=== PATIENT | male | born 1965 | race Two or more races ===

== ENCOUNTER 2019-09-23 06:28 | Day surgery (SDC) | payer BC ==
--- NOTE | 2019-09-13 14:12 | HP ---
HISTORY AND PHYSICAL: DATE OF SURGERY/ADMISSION: 09/23/19 DATE OF OFFICE VISIT: 09/12/19 SURGEON: Sarah Oakes MD * (DICTATED BY HEMA CORCORAN) PROCEDURES: Right knee arthroscopy with partial meniscectomy, possible chondroplasty, possible synovectomy, possible plica excision. CHIEF COMPLAINT: Right knee pain. HISTORY OF PRESENT ILLNESS: Mr. Fontana is a 54-year-old gentleman with complaints of right knee pain. An MRI confirms meniscus tear and he has elected to proceed with surgery. PAST MEDICAL HISTORY: History of alcohol abuse and hepatitis C, treated 5 years ago. PAST SURGICAL HISTORY: Left knee arthroscopy, colonoscopy. CURRENT MEDICATIONS: None. ALLERGIES: None. FAMILY HISTORY: Denied. SOCIAL HISTORY: He is a 54-year-old gentleman, lives with his girlfriend. He occasionally smokes. He says he smokes a couple of cigarettes per week. Denies use of drugs or alcohol. REVIEW OF SYSTEMS: A complete 14-point review of systems is reviewed with the patient, and it is positive for history of hepatitic C infection 5 years ago which was treated. He denies history of DVT, PE, MRSA or anesthesia problems. PHYSICAL EXAMINATION GENERAL: He is well developed, well nourished, in no acute distress. VITAL SIGNS: He stands 5 feet 9 inches tall, weighs 170 pounds. His blood pressure is 128/70, his heart rate is 76. HEENT: Normocephalic, atraumatic. NECK: Supple. No palpable lymph nodes. PULMONARY: The lungs are clear to auscultation bilaterally. CARDIO: Regular rate and rhythm. Strong S1 and S2. ABDOMEN: Soft, nontender, nondistended. NEUROLOGIC: He is alert and oriented x3. MUSCULOSKELETAL: Right lower extremity, skin is intact. There are no open wounds or abrasions. There is some mild to moderate effusion of the right knee. He has some tenderness along the medial joint line. Positive Apley's and Matt's. Negative Batsheva. He has a 2+ dorsalis pedis pulse. He is able to dorsiflex, plantarflex and has intact sensation. ASSESSMENT AND PLAN: Mr. Fontana is a 54-year-old gentleman with a 1 month history of acute right knee pain with mechanical symptoms and MRI confirms the medial meniscus tear. He has elected to proceed with the right knee arthroscopy with partial meniscectomy, possible chondroplasty, possible synovectomy and possible plica excision. Surgery is scheduled for 09/23/[address] Oakes discussed the risks and the benefits of the surgery at today's visit and all of his questions were answered. He will follow up with Dr. Oakes 2 weeks after the surgery. HEMA CORCORAN [id number]/[facility] #: [id number] MTDD
[~2019-09-23 06:28] MED LIST: Buffered Lidocaine 1% SYRIN* 1 ML/SYRINGE INTRADERM ONE; Famotidine IV* 10 MG/ML 2 ML (20 mg) IV ONE; Lactated Ringers 1000 ML Bag* 1,000 ML IV SCH
[2019-09-23] MEDS ORDERED: Famotidine IV* 10 MG/ML 2 ML (20 mg) ONE (06:43)
[2019-09-23] MEDS ORDERED: ceFAZolin 2 GM in NS PREMIX(*) 2 GM/100 ML BAG IVPB ONE (06:44)
[2019-09-23] MEDS ORDERED: methylPREDNISolone ACETATE 80* 80 MG/ML 1 ML VIAL ONE (08:09)
[2019-09-23] MEDS ORDERED: EPINEPHRINE 1 MG/ML 1 ML VIAL ONE (08:09)
[2019-09-23] MEDS ORDERED: ROPIVACAINE 5 MG/ML 30 ML BTL (0.5%) ONE (08:10)
[2019-09-23] MEDS ORDERED: Midazolam* 1 MG/ML 5 ML VIAL (5 MG) ONE (08:18)
[2019-09-23] MEDS ORDERED: fentaNYL* 50 MCG/ML 2 ML VIAL (100 MCG VIAL) ONE (08:38)
[2019-09-23] MEDS ORDERED: Ketorolac INJ* 30 MG/ML 1 ML VIAL ONE (08:52)
[2019-09-23] MEDS ORDERED: Propofol* 10 MG/ML 20 ML BTL ONE (08:52)
[2019-09-23] MEDS ORDERED: Dexamethasone IV* 4 MG/ML 1 ML (4 MG) ONE (08:52)
[2019-09-23] MEDS ORDERED: Ondansetron INJ* 2 MG/ML VIAL ONE (08:52)
[2019-09-23] MEDS ORDERED: Lidocaine 2% PF * 5 ML VIAL ONE (08:52)
[2019-09-23] MEDS ORDERED: Naloxone* 0.4 MG/ML 1 ML VIAL IV PRN (09:17)
[2019-09-23] MEDS ORDERED: oxyCODONE/Acetamin 5/325 MG* TAB PO PRN (09:17)
[2019-09-23] MEDS ORDERED: oxyCODONE/Acetamin 5/325 MG* TAB ONE (09:42)
[2019-09-23] MEDS ORDERED: HYDROmorphone INJ1* 1 MG/ML SYRINGE ONE (09:45)
[2019-09-23] MEDS ORDERED: HYDROmorphone INJ* 0.5 MG/0.5 ML SYRINGE IV SLOW PU PRN (09:45)
[2019-09-23 09:49] VITALS: BP 166/62
--- NOTE | 2019-09-24 00:27 | OP ---
OPERATIVE REPORT: DATE OF OPERATION: 09/23/19 DATE OF : 61 SURGEON: Sarah Oakes MD TURF GROWER: HEMA Mcmillan Ms. did help throughout the procedure with preparation of the leg, wound retraction, manipul ation of the knee, and wound closure. ANESTHESIOLOGIST: Dr. Richard. ANESTHESIA: General. PRE-OP DIAGNOSIS: Right knee medial meniscal tear with zmub-fw-ovysgibf degenerative osteoarthritis. POST-OP DIAGNOSIS: Right knee medial meniscal tear with wxgmprrv-cn-cwwbeu degenerative osteoarthrit is in the medial compartment. OPERATIVE PROCEDURE: Right knee arthroscopy with partial medial meniscectomy and medial compartment chondroplasty. INDICATIONS: Mr. Fontana is a 54-year-old gentleman, who developed acute onset of mechanical symptoms and increased pain in his right knee. He failed conservative treatment and MRI confirmed a medial me niscal tear. Due to continued pain and decreased quality of life, he elected to undergo right knee a rthroscopy with partial medial meniscectomy. Informed consent was obtained from the patient. He und erstood the risks of surgery included but were not limited to bleeding, infection, damage to nearby s tructures, continued pain, need for further surgery, intraoperative complications, retear of the meni scus, advancement of arthritis, anesthesia complication, stroke, heart attack, blood clot, and . He wished to proceed. SPECIMEN: None. COMPLICATIONS: None. ESTIMATED BLOOD LOSS: Less than 25 cc. INTRAOPERATIVE FINDINGS: Intraoperatively, the patient was noted to have a parrot- beak type complex tear of the medial meniscus involving the posterior one third of the medial meniscus in the red-whit e zone. He had grade 3 and 4 Outerbridge cartilage changes of the medial femoral condyle with a larg e area of exposed subchondral bone in the weightbearing portion of the femoral condyle. He had a lar ge cartilage flap as well. DESCRIPTION OF PROCEDURE: Mr. Fontana was identified in the preanesthesia unit. His right lower extre mity was marked as the correct operative side. Informed consent was signed and placed in the chart. The patient was taken to the operating room and placed under anesthesia without difficulty. Right l ower extremity was prepped and draped in the usual sterile fashion. Preop time-out was made to corre ctly identify the patient, side, and site. Appropriate perioperative antibiotics were given within 1 hour of the incision. A 0.5-cm standard anterolateral portal incision was made with a 10-blade and carried down through the capsule. Trocar was introduced. As soon as the light and water sources were turned on, there was i mmediate visualization of the suprapatellar pouch. A tour of the knee joint was performed. Suprapatellar pouch showed no obvious abnormality. Patellofemoral compartment had some minimal degen erative changes. Medial gutter showed no loose body or plica. Medial compartment showed posterior me niscal tear with some anterior displacement. This was a complex parrot-beak type tear that appeared t o be in the red-white zone. The medial femoral condyle had exposed subchondral bone along the majorit y of the weightbearing surface with a cartilage flap around this. There were grade 3 and 4 Outerbrid ge cartilage changes. ACL and PCL appeared to be intact. The knee was placed in a zadujc-wr-yasw po sition. Lateral meniscus had no significant tear. There were minimal degenerative changes in the lat eral compartment. Lateral gutter showed no abnormality. Under direct visualization, a medial portal incision was made. A probe was introduced and a second t our of the knee joint was performed. No additional findings were noted. The medial meniscal tear was complex and parrot-beak type tear in the red-white zone of the posterior one-third of the medial meniscus. Straight biter and shaver were used to perform partial meniscecto my. The tear was carefully excised. A smooth border of the medial meniscus was obtained in the red- white zone. Further probing of the meniscus showed no additional tears. Radiofrequency ablation wan d was used to further smooth the edge of the meniscus. The cartilage flap along medial femoral condyle was mobile and unstable. Radiofrequency ablation wand was used to perform a conservative chondroplasty along the edge of the cartilage flap. The knee was copiously irrigated with sterile saline. All instruments were removed. The incisions w ere closed using interrupted 3-0 nylon suture. Sterile Xeroform, 4x4s, and Webril were used to cover the incision. Lamont wrap and cold pack were placed over this. The patient's anesthesia was reversed without difficulty. He was taken to the PACU in stable condition. Intended weightbearing will be weightbearing as tolerated. Intended DVT prophylaxis will be aspirin. [id number]/[facility] #: [id number]
== END 2019-09-23 11:09 | disposition home or self-care (01) ==
LOC: OR 06:28
PROVIDERS: ATTEND Orthopaedic Surgery Adult Reconstructive Orthopaedic Surgery
DX: S83.241A Other tear of medial meniscus, current injury, right knee, initial encounter (principal); M17.11 Unilateral primary osteoarthritis, right knee; F17.210 Nicotine dependence, cigarettes, uncomplicated; X58.XXXA Exposure to other specified factors, initial encounter; Y92.9 Unspecified place or not applicable
CPT/HCPCS: A9270-GY; J0690; J1040; J1100; J1170; J1885; J2250; J2405; J2704; J2795; J3010

== ENCOUNTER 2019-10-05 12:29 | Emergency (ER) | payer BC ==
--- OUTSIDE RECORDS SUMMARY | 2019-10-05 13:47 | XMS REPORT | Continuity of Care Document ---
:1965 External Reference #:[id number] Author Name Sarah Oakes M.D. (transmitted by agent of provider Yolanda Vázquez) Address [address] [place] [address] Care Team Providers Name Role Phone Bob Figueredo MD - Infectious Care Team Information Supplier Development Manager Disease Segundo Ibrahim MD - Urology Care Team Information Supplier Development Manager [phone] Joy Mcginnis MD - Internal Care Team Information Supplier Development Manager Medicine Problems Active Problems Provider Date Knee joint effusion Papo Smith M.D. 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 Onset: 03/19/2015 Spermatocele Papo Smith M.D. Onset: 03/19/2015 Viral hepatitis C Papo Smith M.D. Onset: 04/03/2015 Current tear of medial cartilage AND/OR Sarah Oakes M.D. Onset: 07/27/2019 meniscus of knee Social History Type Date Description Comments Sex Unknown ETOH Use consumes 7 beers per week Tobacco Use Start: Unknown Patient has never smoked Recreational Drug Use Denies Drug Use Smoking Status Reviewed: 10/03/19 Patient has never smoked Exercise Type/Frequency Exercises regularly Allergies, Adverse Reactions, Alerts Description No Known Drug Allergies Medications Active Medications SIG Qnty Indications Ordering Provider Date Percocet 1 by mouth every 20tabs Sarah Oakes M.D. 09/22/2019 5-325mg 6 hours as Tablets needed pain Aspirin Adult take one tab 28tabs Sarah Oakes M.D. 09/22/2019 325mg twice a day for Tablets 2 weeks History Medications No Active Medications Unknown 07/11/2019 - 09/22/2019 Medications Administered in Office Medication SIG Qnty Indications Ordering Provider Date Depomedrol 40MG Marvin Rangel M.D. 06/25/2015 Injection Depomedrol 40MG Marvin Rangel M.D. 03/26/2015 Injection Immunizations CPT Code Status Date Vaccine Lot # [id number] Given 05/31/2015 Hepatitis B Vaccine Adult Dosage [id number] Vital Signs Date Vital Result Comment 10/03/2019 1:36pm Height 69 inches 5'9" Weight 170.00 lb Heart Rate 89 /min BP Systolic 130 mmHg BP Diastolic 73 mmHg Body Temperature 97.3 F Pain Level 4 BMI (Body Mass Index) 25.1 kg/m2 09/12/2019 12:06pm Height 69 inches 5'9" Weight 170.00 lb Heart Rate 76 /min BP Systolic 128 mmHg BP Diastolic 78 mmHg Respiratory Rate 12 /min Pain Level 0 BMI (Body Mass Index) 25.1 kg/m2 Results Description No Information Available Procedures Date Code Description Status 09/23/2019 07723 Arthroscopy,Knee,Meniscectomy Medial Or Lateral Completed 09/23/2019 25365 Arthroscopy,Knee,Meniscectomy Medial Or Lateral Completed 04/02/2015 90506614 Colonoscopy Completed Medical Devices Description No Information Available Encounters Type Date Location Provider Dx Diagnosis Office Visit 07/27/2019 [facility] Sarah Oakes, M25.561 Pain in right 11:45a at [facility].D. knee M25.461 Effusion, right knee S83.241A Oth tear of medial meniscus, current injury, r knee, init Office Visit 07/11/2019 1:00p [facility] Sarah Oakes, M25.561 Pain in right at [facility].D. knee M25.461 Effusion, right knee M23.8x1 Other internal derangements of right knee Assessments Date Code Description Provider 10/03/2019 S83.241A Other tear of medial meniscus, current Sarah Oakes M.D. injury, right knee, initial encounter 10/03/2019 M25.561 Pain in right knee Sarah Oakes M.D. 09/23/2019 S83.241A Other tear of medial meniscus, current HEMA Ely injury, right knee, initial encounter 09/23/2019 S83.241A Other tear of medial meniscus, current Sarah Oakes M.D. injury, right knee, initial encounter 09/12/2019 M25.561 Pain in right knee Sarah Oakes M.D. 09/12/2019 M25.461 Effusion, right knee Sarah Oakes M.D. 09/12/2019 S83.241A Other tear of medial meniscus, current Sarah Oakes M.D. injury, right knee, initial encounter 07/27/2019 M25.561 Pain in right knee Sarah Oakes M.D. 07/27/2019 M25.461 Effusion, right knee Sarah Oakes M.D. 07/27/2019 S83.241A Other tear of medial meniscus, current Sarah Oakes M.D. injury, right knee, initial encounter 07/11/2019 M25.561 Pain in right knee Sarah Oakes M.D. 07/11/2019 M25.461 Effusion, right knee Sarah Oakes M.D. 07/11/2019 M23.8x1 Other internal derangements of right knee Sarah Oakes M.D. Plan of Treatment 10/03/2019 - Sarah Oakes M.D.S83.241A Other tear of medial meniscus, current injury, right knee, initial encounterNew Therapy:Physical TherapyFollow up: Follow up: 1 plrydK51.561 Pain in right knee Functional Status Description No Information Available Mental Status Description No Information Available Referrals Description No Information Available
--- OUTSIDE RECORDS SUMMARY | 2019-10-05 13:47 | XMS REPORT | Continuity of Care Document ---
:1965 External Reference #:[id number] Author Name Sarah Oakes M.D. (transmitted by agent of provider Altagracia Sabillon) Address [address] [facility] [place] [address] Care Team Providers Name Role Phone Bob Figueredo MD - Infectious Care Team Information Healthcare Interpreter [phone] Disease Segundo Ibrahim MD - Urology Care Team Information Healthcare Interpreter [phone] Joy Mcginnis MD - Internal Care Team Information Healthcare Interpreter Medicine Problems Active Problems Provider Date Knee [...] Use Denies Drug Use Smoking Status Reviewed: 10/05/19 Patient has never smoked Exercise Type/Frequency Exercises regularly Allergies, Adverse Reactions, Alerts Description No Known Drug Allergies Medications Active Medications SIG Qnty Indications Ordering Date Provider Cyclobenzaprine HCL 1-2 tablets by 30tabs Sarah Oakes, 10/05/2019 5mg mouth every 8 M.D. Tablets hours as needed for muscle spasm Keflex 1 by mouth 4 20caps S83.241A Sarah Oakes, 10/03/2019 500mg Capsules times a day for M.D. 5 days Percocet 1 by mouth 20tabs Sarah Oakes, 09/22/2019 5-325mg Tablets every 6 hours M.D. as needed pain Aspirin Adult take one tab 28tabs Sarah Oakes, 09/22/2019 325mg Tablets twice a day for M.D. 2 weeks History Medications No Active Medications Unknown 07/11/2019 - 09/22/2019 Medications Administered in Office Medication SIG Qnty Indications Ordering Provider Date Depomedrol 40MG Marvin Rangel M.D. 06/25/2015 Injection Depomedrol 40MG Marvin Rangel M.D. 03/26/2015 Injection Immunizations CPT Code Status Date Vaccine Lot # [id number] Given 05/31/2015 Hepatitis B Vaccine Adult Dosage [id number] Vital Signs Date Vital Result Comment 10/05/2019 11:08am Height 69 inches 5'9" Weight 170.00 lb BP Systolic 128 mmHg BP Diastolic 78 mmHg Respiratory Rate 16 /min Body Temperature 96.7 F Pain Level 10 BMI (Body Mass Index) 25.1 kg/m2 10/03/2019 1:36pm Height 69 inches 5'9" Weight 170.00 lb Heart Rate 89 /min BP Systolic 130 mmHg BP Diastolic 73 mmHg Body Temperature 97.3 F Pain Level 4 BMI (Body Mass Index) 25.1 kg/m2 Results Description No Information Available Procedures Date Code Description Status 09/23/2019 42047 Arthroscopy,Knee,Meniscectomy Medial Or Lateral Completed 09/23/2019 79540 Arthroscopy,Knee,Meniscectomy Medial Or Lateral Completed 04/02/2015 39164759 Colonoscopy Completed Medical Devices Description No Information Available Encounters Type Date Location Provider Dx Diagnosis Office Visit 07/27/2019 [facility] Sarah Oakes, M25.561 Pain in right 11:45a at [place] M.D. knee M25.461 Effusion, right knee S83.241A Oth tear of medial meniscus, current injury, r knee, init Office Visit 07/11/2019 1:00p [facility] Sarah Oakes, M25.561 Pain in right at [place] M.D. knee M25.461 Effusion, right knee M23.8x1 Other internal derangements of right knee Assessments Date Code Description Provider 10/05/2019 R60.0 Localized edema Sarah Oakes M.D. 10/05/2019 M25.561 Pain in right knee Sarah Oakes M.D. 10/05/2019 S83.241A Other tear of medial meniscus, current Sarah Oakes M.D. injury, right knee, initial encounter 10/03/2019 S83.241A Other tear of medial meniscus, [...] knee Sarah Oakes M.D. Plan of Treatment Future Appointment(s):10/10/2019 8:15 am - Sarah Oakes M.D. at [facility] at [place]/05/2019 - Sarah Oakes M.D.R60.0 Localized edemaNew Xrays:Venous Doppler Lower Right Ext, Ordered: 10/05/19Follow up:Follow up: M25.561 Pain in right kneeNew Xrays:Venous Doppler Lower Right Ext, Ordered: Follow up:Follow up: follow up in 1 week Will await hold and call.S83.241A Other tear of medial meniscus, current injury, right knee, initial encounter Functional Status Description No Information Available Mental Status Description No Information Available Referrals Description No Information Available
--- OUTSIDE RECORDS SUMMARY | 2019-10-05 13:47 | XMS REPORT | Continuity of Care Document ---
:1965 External Reference #:[id number] Author Name Sarah Oakes M.D. 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 06/25/2015 Injection Depomedrol 40MG Marvin Rangel M.D. 03/26/2015 Injection Immunizations CPT Code Status Date Vaccine Lot # [id number] Given 05/31/2015 Hepatitis B Vaccine Adult Dosage [id number] Vital Signs Date Vital Result Comment 09/12/2019 12:06pm Height 69 inches 5'9" Weight 170.00 lb Heart Rate 76 /min BP Systolic 128 mmHg BP Diastolic 78 mmHg Respiratory Rate 12 /min Pain Level 0 BMI (Body Mass Index) 25.1 kg/m2 07/27/2019 12:04pm Height 69 inches 5'9" Weight 171.00 lb Heart Rate 84 /min BP Systolic 132 mmHg BP Diastolic 80 mmHg Pain Level 5 BMI (Body Mass Index) 25.2 kg/m2 Results Description No Information Available Procedures Date Code Description Status 04/02/2015 [id number] Colonoscopy Completed Medical Devices Description No Information Available Encounters Type Date Location Provider Dx Diagnosis Office Visit 07/27/2019 [facility] Sarah Oakes, M25.561 Pain in right 11:45a at [place] M.D. knee M25.461 Effusion, right knee S83.241A Oth tear of medial meniscus, current injury, r knee, init Office Visit 07/11/2019 1:00p [facility] Sarah Oakes, M25.561 Pain in right at [place] M.DCasey knee M25.461 Effusion, right knee M23.8x1 Other internal derangements of right knee Assessments Date Code Description Provider 09/12/2019 M25.561 Pain in right knee Sarah Oakes M.D. 09/12/2019 M25.461 Effusion, right knee Sarah Oakes M.D. 09/12/2019 S83.241A Other tear of medial meniscus, current injury, Sarah Oakes M.D. right knee, initial encounter 07/27/2019 M25.561 Pain in right knee Sarah Oakes M.D. 07/27/2019 M25.461 Effusion, right knee Sarah Oakes M.D. 07/27/2019 S83.241A Other tear of medial meniscus, current injury, Sarah Oakes M.D. right knee, initial encounter 07/11/2019 M25.561 Pain in right knee Sarah Oakes M.D. 07/11/2019 M25.461 Effusion, right knee Sarah Oakes M.D. 07/11/2019 M23.8x1 Other internal derangements of right knee Sarah Oakes M.D. Plan of Treatment Future Appointment(s):10/03/2019 1:15 pm - Sarah Oakes M.D. at [facility] at [place]/23/2019 7:30 am - Sarah Oakes M.D. at [facility] at [facility]9/12/2019 - Sarah Oakes M.D.M25.561 Pain in right kneeFollow up:Follow up: 2 weeks after qmeidbiV85.461 Effusion, right kneeS83.241A Other tear of medial meniscus, current injury, right knee, initial encounter Functional Status Description No Information Available Mental Status Description No Information Available Referrals Description No Information Available
[2019-10-05] MEDS ORDERED: Sulfamethox/Trimethoprim DS 800/160* TAB PO ONE (15:04)
--- NOTE | 2019-10-05 15:07 | ED ---
Lower Extremity - HPI Summary HPI Summary: 54 year old M presenting to [facility] accompanied by family member complains of severe right knee pain shooting down his right lower extremity rated 12/10 in severity since yesterday. Patient recently had right knee surgery done 09/23/[address] Oakes. Had post-surgical f/u appointment on 10/03/19 after which he was placed on antibiotics. On 10/04/19, patient developed pain in his posterior right knee shooting down his right lower extremity, erythema and swelling in his right knee. He also reports feeling something wet burst in his knee. Patient was seen by Dr. Oakes this morning who referred patient to ED for ultrasound to r/o DVT. Symptoms aggravated by movement of the right knee. Symptoms alleviated by nothing. Hx staph infection in right knee several years ago for which he was admitted and given antibiotics IV for 10 days. No fever currently. - History of Current Complaint Chief Complaint: EDExtremityLower Stated Complaint: POSS BLOOD CLOT RT LET PER PT Time Seen by Provider: 10/05/19 14:44 Hx Obtained From: Patient Onset/Duration: Days - 1 Severity Currently: Severe Pain Intensity: 12 Pain Scale Used: 0-10 Numeric Timing: Constant, Lasting Days - 1 Associated Signs And Symptoms: Negative: Fever Aggravating Factor(s): Movement Alleviating Factor(s): Nothing - Allergies/Home Medications Allergies/Adverse Reactions: Allergies Allergy/AdvReac Type Severity Reaction Status Date / Time No Known Allergies Allergy Verified 10/05/19 12:34 PMH/Surg Hx/FS Hx/Imm Hx Endocrine/Hematology History: Denies: Hx Diabetes, Hx Thyroid Disease Cardiovascular History: Denies: Hx Hypertension, Hx Pacemaker/ICD, Other Cardiovascular Problems/ Disorders Respiratory History: Denies: Hx Asthma, Hx Chronic Obstructive Pulmonary Disease (COPD), Other Respiratory Problems/Disorders GI History: Denies: Hx Ulcer, Other GI Disorders History: Denies: Hx Dialysis, Hx Renal Disease, Other Problems/Disorders Musculoskeletal History: Denies: Other Musculoskeletal History Sensory History: Reports: Hx Contacts or Glasses - READING GLASSES Denies: Hx Hearing Aid Opthamlomology History: Reports: Hx Contacts or Glasses - READING GLASSES Neurological History: Denies: Other Neuro Impairments/Disorders Psychiatric History: Denies: Hx Panic Disorder - Surgical History Surgery Procedure, Year, and Place: LEFT KNEE- MENISCUS REPAIR. COLONOSCOPY. right knee 09/23/19 Hx Anesthesia Reactions: No Infectious Disease History: No Infectious Disease History: Reports: Hx Hepatitis - HEPATITIS [id number] FOR PER PATIENT Denies: Hx Clostridium Difficile, Hx Human Immunodeficiency Virus (HIV), Hx of Known/Suspected MRSA, Hx Shingles, Hx Tuberculosis, Hx Known/Suspected VRE, Hx Known/Suspected VRSA, History Other Infectious Disease, Traveled Outside the [place] in Last 30 Days - Family History Known Family History: Negative: Diabetes - Social History Alcohol Use: None Hx Substance Use: Yes Substance Use Type: Reports: Marijuana Substance Use Comment - Amount & Last Used: OCCASIONALLY Hx Tobacco Use: Yes Smoking Status (MU): Current Some Day Smoker Amount Used/How Often: RARELY X COUPLE YEARS Have You Smoked in the Last Year: Yes Review of Systems Negative: Fever Positive: Other - severe right knee pain shooting down his right lower extremity , swelling in right knee Positive: Other - erythema in right knee All Other Systems Reviewed And Are Negative: Yes Physical Exam - Summary Physical Exam Summary: Constitutional: Well-developed, Well-nourished, Alert. (-) Distressed Skin: Warm, Dry HENT: Normocephalic; Atraumatic Eyes: Conjunctiva normal Neck: Musculoskeletal ROM normal neck. (-) JVD, (-) Stridor, (-) Tracheal deviation Cardio: Rhythm regular, rate normal, Heart sounds normal; Intact distal pulses; The pedal pulses are 2+ and symmetric. Radial pulses are 2+ and symmetric. (-) Murmur Pulmonary/Chest wall: Effort normal. (-) Respiratory distress, (-) Wheezes, (-) Rales Abd: Soft, (-) tenderness, (-) Distension, (-) Guarding, (-) Rebound Musculoskeletal: Pain with ROM of right knee, good ROM of right knee. 2 sutures in his right knee, one on medial aspect of right anterior knee and one on lateral aspect of the right anterior knee. The lateral suture has erythema spreading down to leg and about 5-cm erythematous area just inferior and lateral to right knee that is tender to palpation without any underlying fluctuates. Mild edema of posterior right knee. Lymph: (-) Cervical adenopathy Neuro: Alert, Oriented x3, neurovascular is intact distally Psych: Mood and affect Normal Triage Information Reviewed: Yes Vital Signs On Initial Exam: Initial Vitals Temp Pulse Resp BP Pulse Ox 97.9 F 101 22 158/90 100 10/05/19 12:30 10/05/19 12:30 10/05/19 12:30 10/05/19 12:30 10/05/19 12:30 Vital Signs Reviewed: Yes Skin: Positive: Erythema @ - right anterior knee spreading down leg, and 5 cm diameter erythematous area just inferior and lateral to knee Musculoskeletal: Positive: Normal - ROM of right knee, Pain @ - ROM of right knee, Edema Right - edema of posterior right knee Neurological: Positive: Normal - neurovascular intact Procedures - Sedation Patient Received Moderate/Deep Sedation with Procedure: No Diagnostics - Vital Signs Vital Signs Temp Pulse Resp BP Pulse Ox 10/05/19 14:36 100.9 F 80 16 139/79 99 10/05/19 12:30 97.9 F 101 22 158/90 100 - Laboratory Lab Statement: Any lab studies that have been ordered have been reviewed, and results considered in the medical decision making process. - Ultrasound Venous Doppler Study Ultrasound Interpretation Completed By: Radiologist Summary of Ultrasound Findings: IMPRESSION: No evidence for RIGHT lower extremity deep venous thrombosis. Moderate grossly simple appearing RIGHT knee joint effusion. Large grossly simple appearing popliteal cyst with rupture into the calf. ED physician has reviewed this report. Lower Extremity Course/Dx - Course Course Of Treatment: 54 year old M complains of severe right knee pain shooting down his right lower extremity since yesterday. Patient recently had right knee surgery done 09/23/[address] Oakes. Had post-surgical f/u appointment on after which he was placed on antibiotics. On 10/04/19, patient developed pain in his posterior right knee shooting down his right lower extremity, erythema and swelling in his right knee. He also reports feeling something wet burst in his knee. Patient was seen by Dr. Oakes this morning who referred patient to ED for ultrasound to r/o DVT. Physical exam findings: Pain with ROM of right knee, good ROM of right knee. 2 sutures in his right knee, one on medial aspect of right anterior knee and one on lateral aspect of the right anterior knee. The lateral suture has erythema spreading down to leg and about 5 -cm erythematous area just inferior and lateral to right knee that is tender to palpation without any underlying fluctuates. Mild edema of posterior right knee. Venous Doppler Study shows, per radiologist: no evidence for RIGHT lower extremity deep venous thrombosis. Moderate grossly simple appearing RIGHT knee joint effusion. Large grossly simple appearing popliteal cyst with rupture into the calf. In the ED course, the patient was given Bactrim. Spoke with Dr. Oakes, orthopedics, about adding an antibiotic to expand coverage, and she agrees with Bactrim. Will prescribe Bactrim BID to cover MRSA. She recommends d/ c patient to f/u with her on 10/10. Patient was diagnosed with cellulitis. Patient will be discharged home with a and follow up from Dr. Oakes on . He was given a prescription for Bactrim. Patient was instructed to return to Emergency Department for new or worsening symptoms. Patient understands and is agreeable to this plan. - Diagnoses Provider Diagnoses: Cellulitis - Physician Notifications Discussed Care Of Patient With: Sarah Oakes Time Discussed With Above Provider: 15:00 Instructed by Provider To: Other - Dr. Oakes, orthopedics, agrees with Bactrim prescription. Discharge ED - Sign-Out/Discharge Documenting (check all that apply): Patient Departure - Discharge - Discharge Plan Condition: Stable Disposition: HOME Prescriptions: Cyclobenzaprine TAB* [Flexeril 10 MG TAB*] 10 mg PO TID PRN #20 tab PRN Reason: Pain - Mild Ondansetron ODT TAB* [Zofran 4 MG Odt TAB*] 4 mg PO Q8H PRN #20 tab.odt PRN Reason: Nausea Sulfamethox/Trimethoprim DS* [Bactrim DS 800/160 TAB*] 2 tab PO BID #40 tab Patient Education Materials: Cellulitis (ED) Print Language: CZECH Referrals: Sarah Oakes MD [Medical Doctor] - 10/10/19 Additional Instructions: Follow up with on 10/10. - Billing Disposition and Condition Condition: STABLE Disposition: Home - Attestation Statements Document Initiated by Scribe: Yes Documenting Scribe: Emi Birmingham Provider For Whom [place] is Documenting (Include Credential): Isabella Genao MD Scribe Attestation: Gino Manjarrez Tiffany Liu, scribed for Isabella Hartley MD on at 2216. Scribe Documentation Reviewed: Yes Provider Attestation: The documentation as recorded by the scribe, Emi Birmingham accurately reflects the service I personally performed and the decisions made by me, Isabella Hartley MD Status of Scribe Document: Viewed
[2019-10-05 15:25] VITALS: BP 148/81
== END 2019-10-05 15:16 | disposition home or self-care (01) ==
LOC: ED 12:29
DX: L03.115 Cellulitis of right lower limb (principal); M25.461 Effusion, right knee; M66.0 Rupture of popliteal cyst; M79.89 Other specified soft tissue disorders; Z98.890 Other specified postprocedural states; Z72.0 Tobacco use
CPT/HCPCS: 99282; A9270-GY

== ENCOUNTER 2019-11-15 19:39 | Emergency (ER) | payer BC ==
--- OUTSIDE RECORDS SUMMARY | 2019-11-15 19:55 | XMS REPORT | Continuity of Care Document ---
:1965 External Reference #:[id number] Author Name Sarah Oakes M.D. (transmitted by agent of provider Funmi Nick) Address [address] [facility] [place] [address] Care Team Providers Name Role Phone Bob Figueredo MD - Infectious Care Team Information Oim Consultant [phone] Disease Segundo Ibrahim MD - Urology Care Team Information Oim Consultant [phone] Joy Mcginnis MD - Internal Care Team Information Oim Consultant Medicine Problems Active Problems Provider Date Knee [...] Use Denies Drug Use Smoking Status Reviewed: 11/04/19 Patient has never smoked Exercise Type/Frequency Exercises regularly Allergies, Adverse Reactions, Alerts Description No Known Drug Allergies Medications Active Medications SIG Qnty Indications Ordering Date Provider Compression Stockings 1units Sarah Oakes, 10/17/2019 Misc MCaseyDCasey Sulfamethoxazole/Trimeth take 1 by mouth 20tabs Sarah Oakes, 10/15/2019 oprim DS every 12 hours M.D. 800-160mg Tablets x 10 days Cyclobenzaprine HCL 1-2 tablets by 30tabs Sarah [...] CPT Code Status Date Vaccine Lot # [id number] Given 05/31/2015 Hepatitis B Vaccine Adult Dosage [id number] Vital Signs Date Vital Result Comment 11/04/2019 8:43am Height 69 inches 5'9" Weight 170.00 lb Heart Rate 82 /min BP Systolic 140 mmHg BP Diastolic 88 mmHg Respiratory Rate 16 /min Pain Level 5 BMI (Body Mass Index) 25.1 kg/m2 10/17/2019 11:03am Height 69 inches 5'9" Weight 170.00 lb Heart Rate 80 /min Body Temperature 97.5 F Pain Level 5 O2 % BldC Oximetry 96 % BMI (Body Mass Index) 25.1 kg/m2 Results Test Acquired Date Facility Test Result H/L Range Note CBC Auto 10/17/2019 [facility] White Blood 8.9 10^3/uL Normal 3.5-10.[address] [place] [address] [phone] Red Blood Count 4.34 10^6/uL Normal 4.18-5.48 Hemoglobin 12.9 g/dL Low 14.0-18.0 Hematocrit 38 % Low 42-52 Mean Corpuscular Volume 88 fL Normal 80-94 Mean Corpuscular Hemoglobin 30 pg Normal 27-31 Mean Corpuscular HGB Conc 34 g/dL Normal 31-36 Red Cell Distribution Width 14 % Normal 10-15 Platelet Count 395 10^3/uL Normal 150-450 Mean Platelet Volume 6.3 fL Low 7.4-10.4 Abs Neutrophils 6.3 10^3/uL Normal 1.5-7.7 Abs Lymphocytes 1.5 10^3/uL Normal 1.0-4.8 Abs Monocytes 0.8 10^3/uL Normal 0-0.8 Abs Eosinophils 0.2 10^3/uL Normal 0-0.6 Abs Basophils 0.1 10^3/uL Normal 0-0.2 Abs Nucleated RBC 0.0 10^3/uL Granulocyte % 70.7 % Lymphocyte % 16.9 % Monocyte % 9.1 % Eosinophil % 2.6 % Basophil % 0.7 % Nucleated Red Blood Cells % 0.0 Laboratory test 10/17/2019 [facility] C Reactive 124.53 mg/L High <8.[address] Protein [place] [id number] [phone] Erythrocyte Sed Rate 100 mm/Hr High 0-19 Procedures Date Code Description Status 09/23/2019 90635 Arthroscopy,Knee,Meniscectomy Medial Or Lateral Completed 09/23/2019 66750 Arthroscopy,Knee,Meniscectomy Medial Or Lateral Completed 04/02/2015 27066145 Colonoscopy Completed Medical Devices Description No Information Available Encounters Type Date Location Provider Dx Diagnosis Office Visit 07/27/2019 [facility] Sarah Oakes, M25.561 Pain in right 11:45a at [facility].D. knee M25.461 Effusion, right knee S83.241A Oth tear of medial meniscus, current injury, r knee, init Office Visit 07/11/2019 1:00p [facility] Sarah Oakes, M25.561 Pain in right at [facility].D. knee M25.461 Effusion, right knee M23.8x1 Other internal derangements of right knee Assessments Date Code Description Provider 11/04/2019 M25.561 Pain in right knee Sarah Oakes M.D. 11/04/2019 M23.8x1 Other internal derangements of right knee Sarah Oakes M.D. 11/04/2019 M25.461 Effusion, right knee Sarah Oakes M.D. 11/04/2019 Z48.89 Encounter for other specified surgical Sarah Oakes M.D. aftercare 11/04/2019 R60.0 Localized edema Sarah Oakes M.D. 10/17/2019 R60.0 Localized edema Sarah Oakes M.D. 10/17/2019 M25.561 Pain in right knee Sarah Oakes M.D. 10/17/2019 M23.8x1 Other internal derangements of right knee Sarah Oakes M.D. 10/17/2019 M25.461 Effusion, right knee Sarah Oakes M.D. 10/17/2019 Z48.89 Encounter for other specified surgical Sarah Oakes M.D. aftercare 10/10/2019 R60.0 Localized edema Sarah Oakes M.D. 10/10/2019 M25.561 Pain in right knee Sarah Oakes M.D. 10/10/2019 M23.8x1 Other internal derangements of right knee Sarah Oakes M.D. 10/10/2019 M25.461 Effusion, right knee Sarah Oakes M.D. 10/10/2019 Z48.89 Encounter for other specified surgical Sarah Oakes M.D. aftercare 10/10/2019 S83.241D Other tear of medial meniscus, current Sarah Oakes M.D. injury, right knee, subsequent encounter 10/05/2019 R60.0 Localized edema Sarah Oakes M.D. 10/05/2019 M25.561 Pain in right knee Sarah Oakes M.D. 10/05/2019 S83.241D Other tear of medial meniscus, current Sarah Oakes M.D. injury, right knee, subsequent encounter 10/03/2019 S83.241D Other tear of medial meniscus, current Sarah Oakes M.D. injury, right knee, subsequent encounter 10/03/2019 M25.561 Pain in right knee [...] knee Sarah Oakes M.D. Plan of Treatment 11/04/2019 - Sarah Oakes M.D.M25.561 Pain in right kneeFollow up:Follow up: after MRIM23.8x1 Other internal derangements of right kneeM25.461 Effusion, right kneeZ48.89 Encounter for other specified surgical uuxrdaqenU47.0 Localized edemaNew Xrays:MRI Lower Extremity Right W/O, Ordered: 11/04/19 Functional Status Description No Information Available Mental Status Description No Information Available Referrals Description No Information Available
--- OUTSIDE RECORDS SUMMARY | 2019-11-15 19:56 | XMS REPORT | Continuity of Care Document ---
:1965 External Reference #:[id number] Author Name Sarah Oakes M.D. (transmitted by agent of provider Funmi Nick) Address [address] [facility] [place] [address] Care Team Providers Name Role Phone Bob Figueredo MD - Infectious Care Team Information Care Transitions Manager [phone] Disease Segundo Ibrahim MD - Urology Care Team Information Care Transitions Manager [phone] Joy Mcginnis MD - Internal Care Team Information Care Transitions Manager Medicine Problems Active Problems Provider Date [...] Use Denies Drug Use Smoking Status Reviewed: 10/10/19 Patient has never smoked Exercise Type/Frequency Exercises [...] CPT Code Status Date Vaccine Lot # [id number] Given 05/31/2015 Hepatitis B Vaccine Adult Dosage [id number] Vital Signs Date Vital Result Comment 10/10/2019 8:36am Height 69 inches 5'9" Heart Rate 64 /min BP Systolic Sitting 116 mmHg BP Diastolic Sitting 72 mmHg Respiratory Rate 16 /min Body Temperature 97.5 F Pain Level 6 10/05/2019 11:08am Height 69 inches 5'9" Weight 170.00 lb BP Systolic 128 mmHg BP Diastolic 78 mmHg Respiratory Rate 16 /min Body Temperature 96.7 F Pain Level 10 BMI (Body Mass Index) 25.1 kg/m2 Results Description No Information Available Procedures Date Code Description Status 09/23/2019 65683 Arthroscopy,Knee,Meniscectomy Medial Or Lateral Completed 09/23/2019 89381 Arthroscopy,Knee,Meniscectomy Medial Or Lateral Completed 04/02/2015 64347367 Colonoscopy Completed Medical Devices Description No Information Available Encounters Type Date Location Provider Dx Diagnosis Office Visit 07/27/2019 [facility] Sarah Oakes, M25.561 Pain in right 11:45a at [place] M.D. knee M25.461 Effusion, right knee S83.241A Oth tear of medial meniscus, current injury, r knee, init Office Visit 07/11/2019 1:00p [facility] Sarah Oakes, M25.561 Pain in right at [place] M.D. knee M25.461 Effusion, right knee M23.8x1 Other internal derangements of right knee Assessments Date Code Description Provider 10/10/2019 R60.0 Localized edema Sarah Oakes M.D. 10/10/2019 M25.561 Pain in right knee Sarah Oakes M.D. 10/10/2019 M23.8x1 Other internal derangements of right knee Sarah Oakes M.D. 10/10/2019 M25.461 Effusion, right knee Sarah Oakes M.D. 10/10/2019 Z48.89 Encounter for other specified surgical Sarah Oakes M.D. aftercare 10/05/2019 R60.0 Localized edema Sarah Oakes M.D. 10/05/2019 M25.561 Pain in right knee Sarah Oakes M.D. 10/05/2019 S83.241A Other tear of medial meniscus, maile Oakes M.D. injury, right knee, initial encounter [...] encounter 07/27/2019 M25.561 Pain in right knee aSrah Oakes M.D. 07/27/2019 M25.461 Effusion, right knee Sarah Oakes M.D. 07/27/2019 S83.241A Other tear of medial meniscus, current Sarah Oakes M.D. injury, right knee, initial encounter 07/11/2019 M25.561 Pain in right knee Sarah Oakes M.D. 07/11/2019 M25.461 Effusion, right knee Sarah Oakes M.D. 07/11/2019 M23.8x1 Other internal derangements of right knee Sarah Oakes M.D. Plan of Treatment Future Appointment(s):10/31/2019 10:45 am - Sarah Oakes M.D. at [facility] at [place]10/10/2019 - Sarah Oakes M.D.R60.0 Localized ezmmlJ34.561 Pain in right kneeFollow up:Follow up: 3 mivdgT86.8x1 Other internal derangements of right kneeM25.461 Effusion, right kneeZ48.89 Encounter for other specified surgical aftercare Functional Status Description No Information Available Mental Status Description No Information Available Referrals Description No Information Available
--- OUTSIDE RECORDS SUMMARY | 2019-11-15 19:56 | XMS REPORT | Continuity of Care Document ---
:1965 External Reference #:[id number] Author Name Sarah Oakes M.D. (transmitted by agent of provider Yolanda Vázquez) Address [address] [facility] [place] [address] Care Team Providers Name Role Phone Bob Figueredo MD - Infectious Care Team Information Breaker Layer Disease Segundo Ibrahim MD - Urology Care Team Information Breaker Layer [phone] Joy Mcginnis MD - Internal Care Team Information Breaker Layer Medicine Problems Active Problems Provider Date Knee [...] Use Denies Drug Use Smoking Status Reviewed: 10/17/19 Patient has never smoked Exercise Type/Frequency Exercises [...] CPT Code Status Date Vaccine Lot # [id number] Given 05/31/2015 Hepatitis B Vaccine Adult Dosage [id number] Vital Signs Date Vital Result Comment 10/17/2019 11:03am Height 69 inches 5'9" Weight 170.00 lb Heart Rate 80 /min Body Temperature 97.5 F Pain Level 5 O2 % BldC Oximetry 96 % BMI (Body Mass Index) 25.1 kg/m2 10/10/2019 8:36am Height 69 inches 5'9" Heart Rate 64 /min BP Systolic Sitting 116 mmHg BP Diastolic Sitting 72 mmHg Respiratory Rate 16 /min Body Temperature 97.5 F Pain Level 6 Results Description No Information Available Procedures Date Code Description Status 09/23/2019 72668 Arthroscopy,Knee,Meniscectomy Medial Or Lateral Completed 09/23/2019 77900 Arthroscopy,Knee,Meniscectomy Medial Or Lateral Completed 04/02/2015 [id number] Colonoscopy Completed Medical Devices Description No Information Available Encounters Type Date Location Provider Dx Diagnosis Office Visit 07/27/2019 [facility], M25.561 Pain in right 11:45a at [place] M.D. knee M25.461 Effusion, right knee S83.241A Oth tear of medial meniscus, current injury, r knee, init Office Visit 07/11/2019 1:00[facility], M25.561 Pain in right at [place] M.DCasey knee M25.461 Effusion, right knee M23.8x1 Other internal derangements of right knee Assessments Date Code Description Provider 10/17/2019 R60.0 Localized edema Sarah Oakes M.D. [...] Sarah Oakes M.D. Plan of Treatment Future Appointment(s):11/04/2019 8:30 am - Sarah Oakes M.D. at [facility] at [place]/17/2019 - Sarah Oakes M.D.R60.0 Localized thuxeQ23.561 Pain in right kneeNew Labs:CBC Auto Diff, Ordered: 10/17/19C Reactive Protein, Ordered: 10/17/19Erythrocyte Sed Rate, Ordered: Follow up:Follow up: 2 brinaE60.8x1 Other internal derangements of right kneeM25.461 Effusion, right kneeZ48.89 Encounter for other specified surgical aftercare Functional Status Description No Information Available Mental Status Description No Information Available Referrals Description No Information Available
[2019-11-15] MEDS ORDERED: Ondansetron INJ* 2 MG/ML VIAL IV ONE (21:00)
[2019-11-15] MEDS ORDERED: Morphine 4 MG/ML VIAL (1 ml) 4 MG/ML VIAL IV ONE (21:00)
[2019-11-15] MEDS ORDERED: Diazepam TAB(*) 5 MG PO ONE (21:27)
[2019-11-15 21:31] LABS: ABS Basophils 0.1 10^3/ul (0-0.2); ABS Eosinophils 0.2 10^3/ul (0-0.6); ABS Lymphocytes 2.8 10^3/ul (1.0-4.8); ABS Monocytes 0.9 10^3/ul (0-0.8); ABS Neutrophils 5.9 10^3/ul (1.5-7.7); Eosinophil % 2.1 %; Hematocrit 36 % (42-52); Hemoglobin 12.4 g/dL (14.0-18.0); Lymphocyte % 27.8 %; Mean Corpuscular HGB Conc 34 g/dL (31-36); Mean Corpuscular Hemoglobin 28 pg (27-31); Mean Corpuscular Volume 82 fL (80-94); Mean Platelet Volume 6.3 fL (7.4-10.4); Platelet Count 376 10^3/uL (150-450); Red Blood Count 4.37 10^6 /uL (4.18-5.48); Red Cell Distribution Width 14 % (10-15)
--- NOTE | 2019-11-15 21:41 | ED ---
Lower Extremity - HPI Summary HPI Summary: Patient complains of right calf pain 1.5 months. Patient had history of right knee surgery 09/23/[address] Oakes. States pain started 14 days afterwards. Diagnosed with Pitt's cyst and cellulitis. Cellulitis improved with course of antibiotics. Patient has been evaluated by Dr. Oakes a few times" for ongoing right calf pain. Patient states pain and hard lump in calf is persistent with pain increasing more in the past 3 days. Denies new trauma, fever, cough, sore throat, CP, SOB, N/V/D, abdominal pain, change in urine, change in BM. Ultrasound 10/05 negative for DVT. MRI 11/14 positive for fluid collection likely status post Pitt's cyst eruption. Patient states he was advised by orthopedics to come to the ED for pain control - History of Current Complaint Chief Complaint: EDExtremityLower Stated Complaint: R KNEE SURG/CYST BURST/PAIN PER PT Time Seen by Provider: 11/15/19 20:54 Hx Obtained From: Patient, Family/Principal Technologist Mechanism Of Injury: Unknown Onset of Pain: Days Onset/Duration: Weeks Severity Initially: Severe Severity Currently: Severe Pain Intensity: 8 Pain Scale Used: 0-10 Numeric Timing: Constant Location: Is Discrete @ Associated Signs And Symptoms: Positive: Swelling, Redness Aggravating Factor(s): Standing, Ambulation, Movement, Weight Bearing Alleviating Factor(s): Rest, Elevation Able to Bear Weight: No - Allergies/Home Medications Allergies/Adverse Reactions: Allergies Allergy/AdvReac Type Severity Reaction Status Date / Time No Known Allergies Allergy Verified 11/15/19 19:47 PMH/Surg Hx/FS Hx/Imm Hx Endocrine/Hematology History: Denies: Hx Diabetes, Hx Thyroid Disease Cardiovascular History: Denies: Hx Hypertension, Hx Pacemaker/ICD, Other Cardiovascular Problems/ Disorders Respiratory History: Denies: Hx Asthma, Hx Chronic Obstructive Pulmonary Disease (COPD), Other Respiratory Problems/Disorders GI History: Denies: Hx Ulcer, Other GI Disorders History: Denies: Hx Dialysis, Hx Renal Disease, Other Problems/Disorders Musculoskeletal History: Denies: Other Musculoskeletal History Sensory History: Reports: Hx Contacts or Glasses - READING GLASSES Denies: Hx Hearing Aid Opthamlomology History: Reports: Hx Contacts or Glasses - READING GLASSES EENT History: Denies: Hx Deafness Neurological History: Denies: Hx Dementia, Other Neuro Impairments/Disorders Psychiatric History: Denies: Hx Panic Disorder - Surgical History Surgery Procedure, Year, and Place: 2014 LEFT KNEE- MENISCUS REPAIR - [facility]. COLONOSCOPY. right knee 09/23/19 INTERLAT MENISCUIS SCRAPE KNEE CAP ARTHRITIC - [facility] Hx Anesthesia Reactions: No Infectious Disease History: Yes Infectious Disease History: Reports: Hx Hepatitis - HEPATITIS [id number] FOR PER PATIENT Denies: Hx Clostridium Difficile, Hx Human Immunodeficiency Virus (HIV), Hx of Known/Suspected MRSA, Hx Shingles, Hx Tuberculosis, Hx Known/Suspected VRE, Hx Known/Suspected VRSA, History Other Infectious Disease, Traveled Outside the [place] in Last 30 Days - Family History Known Family History: Negative: Diabetes - Social History Alcohol Use: None Hx Substance Use: Yes Substance Use Type: Reports: Marijuana Substance Use Comment - Amount & Last Used: OCCASIONALLY Hx Tobacco Use: Yes Smoking Status (MU): Current Some Day Smoker Amount Used/How Often: RARELY X COUPLE YEARS Have You Smoked in the Last Year: Yes Review of Systems Constitutional: Negative Eyes: Negative ENT: Negative Cardiovascular: Negative Respiratory: Negative Gastrointestinal: Negative Genitourinary: Negative Musculoskeletal: Other Skin: Other Neurological: Negative Psychological: Normal All Other Systems Reviewed And Are Negative: Yes Physical Exam - Summary Physical Exam Summary: Hard mass with ecchymosis in proximal right calf. No extra warmth, erythema. Otherwise soft nontender. Tenderness is very localized. PMS intact distally. Right knee has mild swelling, no extra warmth, no erythema, 80 range of motion , no pain with palpation. Triage Information Reviewed: Yes Vital Signs On Initial Exam: Initial Vitals Temp Pulse Resp BP Pulse Ox 99.2 F 88 15 132/87 97 11/15/19 19:42 11/15/19 19:42 11/15/19 19:42 11/15/19 19:42 11/15/19 19:42 Vital Signs Reviewed: Yes Appearance: Positive: Well-Appearing Skin: Positive: Warm Head/Face: Positive: Normal Head/Face Inspection Eyes: Positive: Normal Neck: Positive: Supple Respiratory/Lung Sounds: Positive: Clear to Auscultation Cardiovascular: Positive: Normal Abdomen Description: Positive: Nontender Musculoskeletal: Positive: Normal Neurological: Positive: Normal Psychiatric: Positive: Normal AVPU Assessment: Alert - Bindu Coma Scale Best Eye Response: 4 - Spontaneous Best Motor Response: 6 - Obeys Commands Best Verbal Response: 5 - Oriented Coma Scale Total: 15 Procedures - Sedation Patient Received Moderate/Deep Sedation with Procedure: No Diagnostics - Vital Signs Vital Signs Temp Pulse Resp BP Pulse Ox 11/15/19 21:19 16 11/15/19 20:19 83 127/94 97 11/15/19 20:06 87 98 11/15/19 19:42 99.2 F 88 15 132/87 97 - Laboratory Lab Results: Lab Results 11/15/19 Range/Units 21:19 WBC 10.0 (3.5-10.8) 10^3/uL RBC 4.37 (4.18-5.48) 10^6 /uL Hgb 12.4 L (14.0-18.0) g/dL Hct 36 L (42-52) % MCV 82 (80-94) fL MCH 28 (27-31) pg MCHC 34 (31-36) g/dL RDW 14 (10-15) % Plt Count 376 (150-450) 10^3/uL MPV 6.3 L (7.4-10.4) fL Neut % (Auto) 59.7 % Lymph % (Auto) 27.8 % [place] % (Auto) 9.4 % Eos % (Auto) 2.1 % Baso % (Auto) 1.0 % Absolute Neuts (auto) 5.9 (1.5-7.7) 10^3/ul Absolute Lymphs (auto) 2.8 (1.0-4.8) 10^3/ul Absolute Monos (auto) 0.9 H (0-0.8) 10^3/ul Absolute Eos (auto) 0.2 (0-0.6) 10^3/ul Absolute Basos (auto) 0.1 (0-0.2) 10^3/ul Absolute Nucleated RBC 0.0 10^3/ul Nucleated RBC % 0.0 Result Diagrams: 11/15/19 21:19 11/15/19 21:19 Lab Statement: Any lab studies that have been ordered have been reviewed, and results considered in the medical decision making process. Lower Extremity Course/Dx - Course Course Of Treatment: Patient complains of right calf pain 1.5 months. Patient had history of right knee surgery 09/23/[address] Oakes. States pain started 14 days afterwards. Diagnosed with Pitt's cyst and cellulitis. Cellulitis improved with course of antibiotics. Patient has been evaluated by Dr. Oakes a few times" for ongoing right calf pain. Patient states pain and hard lump in calf is persistent with pain increasing more in the past 3 days. Denies new trauma, fever, cough, sore throat, CP, SOB, N/V/D, abdominal pain, change in urine, change in BM. Ultrasound 10/05 negative for DVT. MRI 11/14 positive for fluid collection likely status post Pitt's cyst eruption. Patient states he was advised by orthopedics to come to the ED for pain control. Vital signs within normal limits. Ultrasound negative for DVT. ESR 74. CRP 98. No white count. No improvement in symptoms with morphine 4 mg IV. Discussed patient with orthopedics vp construction Dr. Araiza who recommended Toradol and Flexeril. Patient's symptoms significantly improved with Toradol and Flexeril. Patient sent home with a 5 day prescription for Toradol and Flexeril. Patient advised to follow-up with orthopedics clinic for further evaluation. - Diagnoses Provider Diagnoses: Hematoma Discharge ED - Sign-Out/Discharge Documenting (check all that apply): Patient Departure - Discharge Plan Condition: Stable Disposition: HOME Patient Education Materials: Hematoma (ED) Referrals: No Primary Care Phys,NOPCP [Primary Care Provider] - Sarah Oakes MD [Medical Doctor] - Additional Instructions: Take Toradol every 6 hours for pain if needed. Take Flexeril 3 times a day for pain if needed. Call the clinic of Dr. Oakes to arrange for further evaluation. Return to the ED for any new or worsening symptoms. - Billing Disposition and Condition Condition: STABLE Disposition: Home
[2019-11-15 21:49] LABS: Albumin 3.4 g/dL (3.2-5.2); Albumin/Globulin Ratio 0.8 (1-3); BUN/Creatinine Ratio 18.4 (8-20); C Reactive Protein 98.57 mg/L (<8.01); Calcium 9.3 mg/dL (8.6-10.3); EGFR African American 109.8 (>60); EGFR Non-African American 90.8 (>60); Globulin 4.1 g/dL (2-4); Potassium 3.6 mmol/L (3.5-5.0); Total Bilirubin 0.3 mg/dL (0.2-1.0); Total Protein 7.5 g/dL (6.4-8.9)
[2019-11-15] MEDS ORDERED: Ketorolac INJ* 30 MG/ML 1 ML VIAL IV ONE (23:04)
[2019-11-15] MEDS ORDERED: Cyclobenzaprine TAB* 10 MG PO ONE (23:07)
[2019-11-16] MEDS ORDERED: Cyclobenzaprine TAB* 10 MG PO PRN (00:10)
[2019-11-16] MEDS ORDERED: Ketorolac TAB * 10 MG TAB PO SCH (01:00)
[2019-11-16] MEDS ORDERED: Cyclobenzaprine TAB* 10 MG PO ONE (01:00)
[2019-11-16] MEDS ORDERED: Ketorolac TAB * 10 MG TAB PO ONE (01:00)
[2019-11-16 02:18] VITALS: BP 135/81
== END 2019-11-16 02:14 | disposition home or self-care (01) ==
LOC: ED 19:39
DX: M96.840 Postprocedural hematoma of a musculoskeletal structure following a musculoskeletal system procedure (principal); Z72.0 Tobacco use
CPT/HCPCS: 36415; 80053; 83605; 85025; 85652; 86140; 87040; 96374; 96375; 99283; A9270-GY; J1885; J2270; J2405

== ENCOUNTER 2019-11-17 14:18 | Inpatient (IN) | payer BC ==
[~2019-11-17 14:18] MED LIST changes: +Dexamethasone TAB* 4 MG PO ONE; +DiMENhydriNATE IV* 50 MG/ML VIAL IV PUSH PRN; -Lactated Ringers 1000 ML Bag* 1,000 ML IV SCH; +Lidocaine 1% INJ* 10 MG/ML 30 ML SDV ONE; +Naloxone* 0.4 MG/ML 1 ML VIAL IV PRN; +Ondansetron ODT TAB* 4 MG PO ONE; +PROCHLORPERAZINE INJ 5 MG/ML 2 ML VIAL IV PRN; +oxyCODONE TAB* 5 MG TAB PO PRN
[2019-11-17] MEDS ORDERED: Lactated Ringers 1000 ML Bag* 1,000 ML IV SCH (15:00)
[2019-11-17] MEDS ORDERED: Lidocaine 1% INJ* 10 MG/ML 30 ML SDV ONE (15:12)
[2019-11-17] MEDS ORDERED: ceFAZolin 2 GM PREMIX in ORs 2 GM/50 ML BAG ONE (15:22)
[2019-11-17] MEDS ORDERED: Famotidine IV* 10 MG/ML 2 ML (20 mg) ONE (15:22)
[2019-11-17] MEDS ORDERED: Ondansetron ODT TAB* 4 MG ONE (15:22)
[2019-11-17] MEDS ORDERED: Dexamethasone TAB* 4 MG ONE (15:22)
[2019-11-17] MEDS ORDERED: Buffered Lidocaine 1% SYRIN* 1 ML/SYRINGE INTRADERM ONE (15:22)
[2019-11-17] MEDS ORDERED: fentaNYL* 50 MCG/ML 2 ML VIAL (100 MCG VIAL) ONE ×3 (15:30→17:13)
[2019-11-17] MEDS ORDERED: Midazolam* 1 MG/ML 5 ML VIAL (5 MG) ONE (15:30)
[2019-11-17] MEDS ORDERED: Rocuronium* 10 MG/ML VIAL ONE (15:30)
[2019-11-17] MEDS ORDERED: KETAMINE HCL* 50 MG/ML 10 ML VIAL ONE (15:30)
[2019-11-17 15:55] LABS: Body Fluid Source Synovial Fluid
[2019-11-17] MEDS ORDERED: HYDROmorphone INJ1* 1 MG/ML SYRINGE ONE ×2 (15:55→17:09)
[2019-11-17] MEDS ORDERED: Ropivacaine 0.2% * 2 MG/ML VIAL ONE (15:57)
[2019-11-17] MEDS ORDERED: Propofol* 10 MG/ML 20 ML BTL ONE (16:04)
[2019-11-17] MEDS ORDERED: Lidocaine 2% PF * 5 ML VIAL ONE (16:04)
[2019-11-17] MEDS ORDERED: ceFAZolin VIAL(*) VIAL ONE (16:04)
[2019-11-17] MEDS ORDERED: diPHENhydraMINE PO* 25 MG PO PRN (17:04)
[2019-11-17] MEDS ORDERED: Acetaminophen TAB* 325 MG PO PRN (17:04)
[2019-11-17] MEDS ORDERED: diPHENhydraMINE IV* 50 MG/ML 1 ml VIAL (BENADRYL) IV PRN (17:04)
[2019-11-17] MEDS ORDERED: Morphine INJ* 2 MG/ML 1 ML SYRINGE (TWO MG - NEW SYRINGE VERSION) IV PRN (17:04)
[2019-11-17] MEDS ORDERED: Ondansetron INJ* 2 MG/ML VIAL IV PRN (17:04)
[2019-11-17] MEDS ORDERED: Magnesium Hydroxide LIQ* 30 ML UDC PO PRN (17:04)
[2019-11-17] MEDS ORDERED: oxyCODONE/Acetamin 5/325 MG* TAB PO PRN (17:04)
[2019-11-17] MEDS ORDERED: Ondansetron ODT TAB* 4 MG PO PRN (17:04)
[2019-11-17] MEDS: HYDROmorphone INJ1* 1 MG/ML SYRINGE IV PRN ×3 (17:10→17:26)
[2019-11-17] MEDS: fentaNYL* 50 MCG/ML 2 ML VIAL (100 MCG VIAL) IV PRN ×2 (17:14→17:22)
[2019-11-17 17:25] LABS: Body Fluid Mono 2 %
[2019-11-17] MEDS ORDERED: oxyCODONE TAB* 5 MG TAB ONE (17:28)
[2019-11-17] MEDS ORDERED: oxyCODONE/Acetamin 5/325 MG* TAB ONE (18:03)
[2019-11-17] MEDS ORDERED: Ondansetron INJ* 2 MG/ML VIAL ONE (18:03)
[2019-11-17] MEDS: Lactated Ringers 1000 ML Bag* 1,000 ML IV SCH (18:11)
[2019-11-17] MEDS: Docusate CAP* 100 MG PO SCH (22:12)
[2019-11-17] MEDS: oxyCODONE/Acetamin 5/325 MG* TAB PO PRN (22:13)
[2019-11-17] MEDS: Magnesium Hydroxide LIQ* 30 ML UDC PO SCH (22:14)
--- NOTE | 2019-11-18 03:05 | OP ---
CC: PCP* OPERATIVE REPORT: DATE OF OPERATION: 11/17/19 - Inpatient, room SSU 331-01 DATE OF : 61 SURGEON: Agus Araiza MD MAGAZINE HAND: HEMA Lang for the open portion of the case. ANESTHESIOLOGIST: Dr. Rouse. ANESTHESIA: General. PRE-OP DIAGNOSIS: Right leg abscess and right knee septic arthritis. POST-OP DIAGNOSIS: OPERATIVE PROCEDURES: 1. Right knee aspiration. 2. Right knee arthroscopy with irrigation and debridement. 3. Right calf open I and D through separate incision. SPECIMENS: From the knee joint as well as posterior calf. COMPLICATIONS: None. ESTIMATED BLOOD LOSS: Less than 20. INDICATIONS: Kang Fontana is a 54-year-old male who presents with increasing right knee posterior calf pain with a small mass. He had a previous history of knee arthroscopy on 09/23/19, which he did well until about 10 to 14 days postop, he developed a Pitt cyst, which ruptured. He then had persistent pain and inability to weightbear. He was treated conservatively for some time. He then had an MRI on 11/14/19 where there was a small area of collection that was concerned. The differential included hematoma versus abscess and even osteomyelitis, although it was not adjacent to the bone. He had no symptoms in his knee. He presented to the ER on 11/15/19 and was evaluated for increasing pain. He had been given his prescription of oxycodone, which he had not taken. Labs were demonstrated at that time with an elevated ESR and CRP at the time of his office visit but normal white count and no fevers or chills. He then presented to the office today where he was evaluated. The small area in the posterior aspect of the calf was visualized using ultrasound and aspirated. Catarino pus was identified. The patient had some relief in his symptoms. Decision was made to treat this with an I and D. The patient was then evaluated. We also discussed that his knee did have a large effusion and at the time of being seen in the hospital, he was having increasing knee pain and tenderness to palpation, some increasing warmth that had not been present in clinic about 2 to 3 hours prior and therefore the knee was aspirated using an 18 -gauge needle. The fluid was identified, found to be cloudy but was similar to present in posterior calf. Decision was to treat this as a septic joint as he has posterior abscess as well and he started to have knee symptoms. After extensive discussion of the risks and benefits of operative versus nonoperative treatment, he was elected to proceed with surgical treatment. Risks and benefits included, but not limited to, bleeding; infection; damage to nerves, vessels, surrounding structures; wound nonhealing; persistent pain; need for surgery; scarring; stiffness; incomplete relief of symptoms; risks of anesthesia. DESCRIPTION OF PROCEDURE: The patient was greeted in the preoperative area by the attending surgeon. Correct extremity was marked, consent was confirmed. The patient was brought back to the operating suite, placed in supine position on the operating table, then underwent general anesthesia and LMA intubation after which the right leg was prepped and draped in the usual sterile fashion with chlorhexidine soap, scrub, and alcohol wipe and a final prep with ChloraPrep. After appropriate surgical pause indicating site, side, procedure, and administration of antibiotics, the anterolateral portal was made sharply with 11 blade. The scope was introduced into the joint. The joint was examined. There was abundant cloudy yellow fluid that was obtained as well as some sanguineous material. The scope was brought into the joint. The joint thoroughly irrigated and washed out. There were layers of fibrinous type of material that was present. The patient was then rinsed out with about 9 L of sterile saline after which attention was directed to the posterior calf. With the leg placed in the [id number] position, the area of collection was palpated. It started to become red and warm as well. The 15 blade was used to make an incision and immediately a pocket of catarino purulence was exposed. The gross purulence was then expelled. A curette was then used to scrape the capsule to remove any areas of purulence, after which the 9 L of sterile saline was then used to wash out the wound. This again was subcutaneous. There was no damage to the muscle fibers. Once the irrigation was complete, a small [place] drain was placed in the posterior aspect of the calf to allow it to decompress and not collect again and the remaining sutures were closed with 3-0 nylon. The knee wound was also closed with 3-0 nylon. Sterile dressings were applied. The wound was locally injected with 0.2% ropivacaine superficially. Sterile dressings were applied as well as Cryo/Cuff. He was awoken from anesthesia and transferred to PACU in stable condition. POSTOPERATIVE PLAN: He will be weightbearing as tolerated. He will be allowed range of motion in the knee, we will admit him to my service. We will take out the drain postop day 1 or 2. He will be followed by one of my colleagues over the weekend to make sure he does not have an increase in his symptoms and we will plan for discharge. He will be consulted by Infectious Diseases. We will continue to follow the patient. He will be on Ancef until the organism is identified. [id number] #: [id number] MTDD
[2019-11-18] MEDS: Lactated Ringers 1000 ML Bag* 1,000 ML IV SCH (04:15)
--- NOTE | 2019-11-18 06:13 | PN ---
Progress Note - Progress Note Date of Service: 11/18/19 Note: Pt seen and examined. Feeling much better. Pain and pressure decreased. Reviewed operative findings. Discussed that his knee symptoms worsened when evaluated in preop and thus planned aspiration was appropriate. Explained that it was cloudy and abnormal and thus proceeded with knee washout as well as posterior calf washout. Drain placed on posterior calf to be d/c'd tomorrow. Pt able to get to bathroom and feels soreness about the knee at that point. He is noticing swelling decrease. Pain better controlled but has not slept much. Denies SOB,CP. Vital Signs 11/17/19 11/17/19 11/17/19 14:38 16:58 16:59 Temperature 98.1 F Pulse Rate 70 62 62 Respiratory 18 Rate Blood Pressure 143/78 122/79 (mmHg) O2 Sat by Pulse 100 100 100 Oximetry 11/17/19 11/17/19 11/17/19 17:00 17:05 17:10 Temperature 97.9 F Pulse Rate 65 63 Respiratory 17 17 16 Rate Blood Pressure 122/80 119/82 (mmHg) O2 Sat by Pulse 99 98 Oximetry 11/17/19 11/17/19 11/17/19 17:11 17:14 17:16 Temperature Pulse Rate 77 67 Respiratory 16 Rate Blood Pressure 118/86 (mmHg) O2 Sat by Pulse 99 100 Oximetry 11/17/19 11/17/19 11/17/19 17:19 17:22 17:23 Temperature Pulse Rate 67 Respiratory 18 16 Rate Blood Pressure 127/88 (mmHg) O2 Sat by Pulse 100 Oximetry 11/17/19 11/17/19 11/17/19 17:26 17:30 17:57 Temperature Pulse Rate 68 Respiratory 16 20 Rate Blood Pressure 117/90 (mmHg) O2 Sat by Pulse 99 Oximetry 11/17/19 11/17/19 11/17/19 17:58 18:11 18:55 Temperature 97.7 F 98.7 F Pulse Rate 63 64 Respiratory 16 20 16 Rate Blood Pressure 144/76 148/84 (mmHg) O2 Sat by Pulse 100 100 Oximetry 11/17/19 11/17/19 11/17/19 20:20 20:51 21:55 Temperature 97.3 F 97.3 F Pulse Rate 73 72 Respiratory 16 16 17 Rate Blood Pressure 122/71 117/65 (mmHg) O2 Sat by Pulse 99 98 Oximetry 11/17/19 11/18/19 11/18/19 22:13 00:01 01:14 Temperature 97.8 F Pulse Rate 81 Respiratory 16 17 Rate Blood Pressure 116/59 (mmHg) O2 Sat by Pulse 98 98 Oximetry 11/18/19 03:22 Temperature 97.7 F Pulse Rate 79 Respiratory 16 Rate Blood Pressure 107/58 (mmHg) O2 Sat by Pulse 98 Oximetry NAD. AAOX3. RLE: dressing in place. swelling decreased. less tender to touch. SILT grossly distally. brisk cap refill. able to to straight leg raise, dorsiflex/plantarflex ankle. flex/ext toes. Laboratory Results - last 24 hr 11/17/19 15:37 Fluid Source Synovial fluid Fluid Volume 9 Fluid Color Yellow Fluid Appearance Cloudy Fluid WBC 80740 Fluid RBC 40654 Fluid Tot Cell Count 100 Fluid Neutrophils 95 Fluid Lymphocytes 3 Fluid Monocytes 2 Microbiology 11/17/19 16:05 Gram Stain - Preliminary Body Fluid Skin and Soft Tissue MRSA/MSSA (PCR - Final Mrsa Negative S.aureus Negative 11/17/19 16:05 Skin and Soft Tissue MRSA/MSSA (PCR - Final Misc Source (See Comment) - Other Mrsa Negative S.aureus Negative Gram Stain - Preliminary 11/17/19 15:37 Gram Stain - Final Joint Fluid(Synovial) - Knee Right Skin and Soft Tissue MRSA/MSSA (PCR - Final Mrsa Negative S.aureus Negative A/P 54 yo M s/p I and D of septic knee and posterior calf abscess discussed that knee was probably early in infective process- labs, cultures pending ordered cbc and bmp ID consulted and will see patient today WBAT. ROM as tolerated- PT today ancef until speciation determined lovenox for dvt ppx while in house unless patient mobilizing well drain to be d/c;d tomorrow discussed with Dr Reynolds/Jennifer who will follow patient to see if he needs another washout patient aware of plan will dispo once on appropriate antibiotics analgesia- prn toradol and percocet
[2019-11-18 06:26] LABS: ABS Basophils 0.1 10^3/ul (0-0.2); ABS Lymphocytes 1.4 10^3/ul (1.0-4.8); ABS Monocytes 0.3 10^3/ul (0-0.8); ABS Neutrophils 10.8 10^3/ul (1.5-7.7); Hematocrit 35 % (42-52); Hemoglobin 11.6 g/dL (14.0-18.0); Lymphocyte % 11.5 %; Mean Corpuscular HGB Conc 33 g/dL (31-36); Mean Corpuscular Hemoglobin 28 pg (27-31); Mean Corpuscular Volume 84 fL (80-94); Platelet Count 429 10^3/uL (150-450); Red Blood Count 4.19 10^6 /uL (4.18-5.48); Red Cell Distribution Width 14 % (10-15); White Blood Count 12.6 10^3/uL (3.5-10.8)
[2019-11-18 06:43] LABS: BUN/Creatinine Ratio 21.2 (8-20); Calcium 8.9 mg/dL (8.6-10.3); EGFR African American 112.8 (>60); EGFR Non-African American 93.2 (>60); Potassium 4.8 mmol/L (3.5-5.0)
[2019-11-18] MEDS: ceFAZolin 1 GM ADVAN(*) 1 GM in NS 0.9% 50 ML* 50 ML IVPB SCH ×3 (07:24)
[2019-11-18] MEDS: oxyCODONE/Acetamin 5/325 MG* TAB PO PRN ×3 (07:24→23:09)
--- NOTE | 2019-11-18 08:04 | PN ---
Progress Note - Progress Note Date of Service: 11/18/19 SOAP: Subjective: Pt. reports difficulty sleeping, minimal pain. Objective: Vital Signs: Temp Pulse Resp BP Pulse Ox 97.5 F 63 18 123/64 100 11/18/19 07:19 11/18/19 07:19 11/18/19 07:53 11/18/19 07:19 11/18/19 07:19 Laboratory Results - last 24 hr 11/17/19 11/18/19 11/18/19 15:37 06:20 06:20 WBC 12.6 H RBC 4.19 Hgb 11.6 L Hct 35 L MCV 84 MCH 28 MCHC 33 RDW 14 Plt Count 429 MPV 6.0 L Neut % (Auto) 85.4 Lymph % (Auto) 11.5 [place] % (Auto) 2.6 Eos % (Auto) 0.0 Baso % (Auto) 0.5 Absolute Neuts (auto) 10.8 H Absolute Lymphs (auto) 1.4 Absolute Monos (auto) 0.3 Absolute Eos (auto) 0.0 Absolute Basos (auto) 0.1 Absolute Nucleated RBC 0.0 Nucleated RBC % 0.0 Sodium 137 Potassium 4.8 Chloride 101 Carbon Dioxide 29 Anion Gap 7 BUN 18 Creatinine 0.85 Est GFR ( Amer) 112.8 Est GFR (Non-Af Amer) 93.2 BUN/Creatinine Ratio 21.2 H Glucose 146 H Calcium 8.9 Fluid Source Synovial fluid Fluid Volume 9 Fluid Color Yellow Fluid Appearance Cloudy Fluid WBC 22200 Fluid RBC 99417 Fluid Tot Cell Count 100 Fluid Neutrophils 95 Fluid Lymphocytes 3 Fluid Monocytes 2 RLE - dressing c/d/i, distally nvi. no calf erythema. Assessment: 54 yo M s/p I and D of R calf fluid collection, likely abscess and R knee I and D with Dr. Araiza. He had R knee arthroscopy 09/23/19 with ok, complicated by ruptured popliteal cyst postoperatively. He developed pain in the calf and MRI was ordered to evaluate a mass. His pain increased yesterday and Dr. Araiza was nutritionist public health and washed out the abscess/knee. Plan: Pt. is on IV abx, no growth yet on cultures, will follow. ID consulted. Likely 6-8 weeks of antibiotics IV. wbat rle discussed with the patient will order shiva anand
[2019-11-18] MEDS: Docusate CAP* 100 MG PO SCH ×2 (09:42→21:16)
[2019-11-18] MEDS: Enoxaparin(*) 40 MG/0.4 ML SYR SUBCUT SCH (09:42)
[2019-11-18] MEDS: Vitamin THERAPEUTIC TAB PO SCH (09:42)
[2019-11-18] MEDS: Magnesium Hydroxide LIQ* 30 ML UDC PO SCH (09:43)
[2019-11-18 14:40] LABS: C Reactive Protein 76.23 mg/L (<8.01)
[2019-11-18] MEDS ORDERED: Vancomycin(*) 1,500 MG in NS 0.9% 250 ML* 250 ML IVPB ONE (15:00)
[2019-11-18] MEDS ORDERED: Vancomycin per Pharmacy* NOTE FOLLOW UP SCH (15:00)
--- NOTE | 2019-11-18 15:30 | CONS ---
CONSULTATION REPORT: DATE OF CONSULT: 11/18/19 REQUESTING PHYSICIAN: Dr. Araiza.* CONSULTING SERVICE: Infectious Disease. REASON FOR CONSULTATION: Right knee infection. IMPRESSION: 1. Septic arthritis right knee and abscess right calf, popliteal fossa. The initial aspiration of his knee joint showed 35,000 white blood cells. The PCR showed neutrophils, but no organisms. The culture is negative at 24 hours. The culture from his calf abscess is also negative at 24 hours and showed no organisms on the Gram stain. All staph aureus PCR has been negative. They note that symptoms have been going on for a few weeks, it could be an indolent organism like a coag-negative staph, less likely a staph aureus or gram- negative. He had apparently not recently been on antibiotics leading up to the aspiration. 2. Status post right knee arthroscopy 09/23/19 for right medial meniscal tear and osteoarthritis. RECOMMENDATION: Continue antibiotics changed to vancomycin, and then assuming there is no other culture results to help guide us, we will plan on daptomycin 500 mg IV daily for 4 weeks with weekly CBC, CMP, CRP, and CK. He has some concerns about a PICC line, but is agreeable to a midline cath which I ordered and we could change out after a couple of weeks. HISTORY OF PRESENT ILLNESS: This is a 54-year-old man who had a right knee arthroscopy and then developed some pain and swelling with a ruptured popliteal cyst and then subsequent worsening pain and swelling of the right knee and of the calf, had an aspiration of the joint on 11/17/19 with results as above. The fluid was cloudy in appearance. He was taken to the OR by Dr. Araiza for arthroscopy and washout, which revealed cloudy fluid in the joint space and purulent fluid in the calf collection. For the first time, he has had significant improvement in his pain and he has had no fevers, chills, or sweats leading up to the surgery. He has not had an infection requiring hospitalization in the past. PAST MEDICAL HISTORY: 1. Hepatitis C, cured in 2014, though I do not think he was able to get the followup test of cure. 2. Past alcohol abuse. 3. Status post left knee arthroscopy. MEDICATIONS: 1. Tylenol. 2. Flexeril as needed. 3. Docusate twice a day. 4. Enoxaparin. 5. Morphine. 6. Oxycodone as needed. 7. Ambien. ALLERGIES: No known drug allergies. FAMILY HISTORY: No current infections. 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 He smokes tobacco occasionally. No alcohol. REVIEW OF SYSTEMS: All negative except as noted above to 14 point review of systems. PHYSICAL EXAM: Vital Signs: Temperature 37, heart rate 75, respirations 16, blood pressure 118/55, oxygen saturation 98% on room air. In general, he is awake, not in distress. Neurologic: He is oriented x3. Follows all commands. HEENT: There is no conjunctival hemorrhage. Oropharynx without lesions. Neck is supple without mass. Heart is regular rate and rhythm without murmurs, rubs, or gallops. Lungs are clear to auscultation bilaterally. Abdomen: Soft , nontender, nondistended. There are bowel sounds present. Skin: There is no rash or splinter hemorrhage. Musculoskeletal: The right knee is wrapped. There is no calf tenderness. The posterior calf incision is intact without erythema. DIAGNOSTIC STUDIES/LAB DATA: White blood cell count 12, hemoglobin 11.6, platelets 429. Creatinine is 0.8. Please see impressions and recommendations outlined above. Thank you for asking me to see Mr. Fontana in consultation. [id number]/[facility] #: [id number] FIDELINA
[2019-11-18] MEDS: Zolpidem TAB* 10 MG PO PRN (21:16)
[2019-11-18] MEDS: Vancomycin(*) 1,000 MG in NS 0.9% 250 ML* 250 ML IV SCH (23:29)
--- NOTE | 2019-11-19 08:32 | PN ---
Progress Note - Progress Note Date of Service: 11/19/19 SOAP: Subjective: [Pt was seen this am. He was lying in bed. States that the dressing is tight. He did obtain his PICC line today. He states that he was thinking about coming to the hospital for antibiotics through the PICC line but that he feels that might be to difficult and feels he would be better served by doing it himself. ] Objective: [General: Pt is alert and oriented x3. NAD. MSK, RLE: Dressing is c/d/i. Dressing is changed today. There is trace bloody drainage on the anterior portion of the dressing were the two scope incisions are. The two anterior incisions are c/d/i and without active drainage. The posterior incision on the calf has a drain present. The drain was pulled. There is moderate dried blood on the dressings there. There is trace active drainage. This incision was redressed with 4x4s and an ABD. BERNARDO was applied. The pt has no pain in the calf distal to the incision. +df/pf. NVI distally, 2+ DP pulse. ] Vital Signs Temp 97.6 F 11/19/19 03:12 Pulse 81 11/19/19 03:12 Resp 16 11/19/19 03:12 BP 135/86 11/19/19 03:12 Pulse Ox 94 11/19/19 03:12 Intake & Output 11/18/19 11/19/19 11/19/19 18:59 06:59 18:59 Intake Total 1772 Output Total 1600 700 Balance 172 -700 Intake: IV Fluids 606 LR 576 NS (0.9%) 30 IVPB 316 ABX - CEFAZOLIN 50 ABX - VANCOMYCIN 266 Oral 850 Output: Urine 1600 700 Assessment: 54 yo M s/p I and D of R calf fluid collection, likely abscess and R knee I and D with Dr. Araiza. He had R knee arthroscopy 09/23/[address] Oakes, complicated by ruptured popliteal cyst postoperatively. He developed pain in the calf and MRI was ordered to evaluate a mass. Plan: [Dressing changed today ice to the area Will discuss the need for PICC teaching with the network planner Will need to await results of cultures tomorrow. Continue with pain medication ]
[2019-11-19] MEDS: Docusate CAP* 100 MG PO SCH ×2 (08:56→22:33)
[2019-11-19] MEDS: Enoxaparin(*) 40 MG/0.4 ML SYR SUBCUT SCH (08:56)
[2019-11-19] MEDS: oxyCODONE/Acetamin 5/325 MG* TAB PO PRN ×3 (08:57→22:32)
[2019-11-19] MEDS: Vitamin THERAPEUTIC TAB PO SCH (08:57)
[2019-11-19] MEDS: Vancomycin(*) 1,000 MG in NS 0.9% 250 ML* 250 ML IV SCH (08:57)
[2019-11-19] MEDS: Ketorolac INJ* 15 MG/ML 1 ML VIAL IV PUSH PRN ×2 (09:50→17:43)
[2019-11-19] MEDS: Cefepime 2 GM in Dextrose(*) 2 GM/50 ML BAG IV SCH (15:05)
[2019-11-19] MEDS ORDERED: Vancomycin Trough Check NOTE FOLLOW UP ONE (15:30)
[2019-11-19] MEDS ORDERED: Bisacodyl SUPP* 10 MG SUPP PR PRN (17:04)
--- NOTE | 2019-11-19 18:38 | PN ---
Progress Note - Progress Note Date of Service: 11/19/19 SOAP: Subjective: Pt. reports feeling improved, able to walk without pain. Objective: Vital Signs: Temp Pulse Resp BP Pulse Ox 98.2 F 66 20 139/77 100 11/19/19 15:52 11/19/19 15:52 11/19/19 15:52 11/19/19 15:52 11/19/19 15:52 RLE - dressings changed, incisions healing well. Calf incision has mild to moderate serosanginous drainage. distally nvi. 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 Postop complication of ruptured popliteal cyst, today cultures growing pseudomonas. Plan: Discussed culture results with patient and family. Plan to do infusion center +/- home IV abx administration Will follow Dr. Mcdaniel's recs concerning which antibiotic to use. Patient would like to be discharded on 11/20, I agree as long as IV abx plan is in place. Follow up with Dr. Oakes 11/25/19 in office for wound check.
[2019-11-19] MEDS: Zolpidem TAB* 10 MG PO PRN (22:33)
[2019-11-20] MEDS: Cefepime 2 GM in Dextrose(*) 2 GM/50 ML BAG IV SCH ×2 (02:25→12:57)
[2019-11-20] MEDS: Ketorolac INJ* 15 MG/ML 1 ML VIAL IV PUSH PRN (02:34)
[2019-11-20] MEDS: Cyclobenzaprine TAB* 10 MG PO PRN ×2 (02:34→08:33)
[2019-11-20] MEDS: Docusate CAP* 100 MG PO SCH (08:31)
[2019-11-20] MEDS: Vitamin THERAPEUTIC TAB PO SCH (08:33)
[2019-11-20] MEDS: oxyCODONE/Acetamin 5/325 MG* TAB PO PRN ×2 (08:33→13:01)
[2019-11-20] MEDS: Enoxaparin(*) 40 MG/0.4 ML SYR SUBCUT SCH (08:34)
[2019-11-20 08:55] VITALS: BP 126/79
--- NOTE | 2019-11-20 10:02 | PN ---
Progress Note - Progress Note Date of Service: 11/20/19 SOAP: Subjective: [Pt was seen this am. He was sitting in bed. States that he is doing well. He states that he is okay with coming to the infusion center for antibiotics. He denied any nausea, vomiting, chest pain or SOB. ] Objective: [General: Pt is alert and oriented x3. NAD. MSK, RLE: Dressing is c/d/i. The pt has no pain in the calf distal to the incision. +df/pf. NVI distally, 2+ DP pulse. ] Vital Signs Temp 97.8 F 11/20/19 08:27 Pulse 76 11/20/19 08:27 Resp 16 11/20/19 09:01 BP 126/79 11/20/19 08:27 Pulse Ox 99 11/20/19 08:27 Intake & Output 11/19/19 11/20/19 11/20/19 18:59 06:59 18:59 Intake Total 62 1555 Output Total 900 700 600 Balance -838 855 -600 Intake: IV Fluids 62 55 ABX - CEFEPIME 62 55 Oral 0 1500 Output: Urine 900 700 600 Other: Estimated Void Medium # Voids 3 Assessment: 54 yo M s/p I and D of R calf fluid collection, likely abscess and R knee I and D with Dr. Araiza. He had R knee arthroscopy 09/23/[address] Oakes, complicated by ruptured popliteal cyst postoperatively. Plan: [Spoke with Dr. Figueredo. We will change his outpatient IV to levaquin 500mg IV qd to start tomorrow at the infusion center. ice to the area Continue with pain medication Will follow up on 11/25/[address] Oakes. Dressing was changed this morning by nursing.
--- NOTE | 2019-11-20 10:38 | DS ---
Orthopedic Discharge Summary - Discharge Summary Date of Admission:11/17/19 Date of Discharge: 11/20/2019 Date of Surgery: 11/17/2019 Attending Orthopedic Provider: Dr. 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 Disposition of Patient: home Condition of Patient: good History: SHREE MITCHELL is a 54 year old M who underwent a right knee arthroscopic partial medial meniscectomy about 2 months ago. He developed a ruptured bakers cyst as a post op complication. He was seen on 11/17/[address] Araiza in clinic and had the posterior calf aspirated due to hard swelling of the area. The fluid looked appeared boggy and could have been bacteria. The pt was then admitted and underwent a Arthroscopic I&D of right knee, open I&D of right calf. Hospital Course: SHREE was admitted to [facility] on 11/17/19. Patient underwent an Arthroscopic I&D of right knee, open I&D of right calf without complication followed by a brief recovery in PACU and transfer to the Short Stay Surgical Unit in stable condition. Our Infectious disease, physical therapy and occupational therapy also participated in this patients care. Post- op day 1: patient was alert and in no acute distress. Dressing was clean, dry and intact. Operative extremity dorsiflexion and plantarflexion intact, sensation intact to light touch distally, DP2+. Post-op day two: dressing was changed, and drains were removed, incisions were clean, dry and intact. The patients cultures grew psuedomonas. POD 3 the susceptibilities resulted and a plan was formed for antibiotics. See plan below. Patient was deemed to be medically and orthopedically stable for discharge. Physical therapy goals were met. Home Medications Medication Instructions Recorded Confirmed Type Cyclobenzaprine TAB* [Flexeril 10 10 mg PO TID PRN #20 tab 10/05/19 11/17/19 Rx MG TAB*] Toradol TAB * 1 tab 11/17/19 History oxyCODONE/Acetamin 5/325 MG* 1 tab PO Q4H PRN tab 11/20/19 Rx [Percocet 5/325 TAB*] oxyCODONE/Acetamin 5/325 MG* 2 tab PO Q4H PRN tab 12/29/19 Rx [Percocet 5/325 TAB*] Discharge Instructions following Orthopedic Surgery: Activity: * Weight Bearing as tolerated * Continue physical therapy and occupational therapy exercises as shown Wound care: * OK to shower on post-op day 3, no bathing, swimming, or submerging wound. * Use gentle soap, pat dry. Cover with gauze, BERNARDO wrap or tape. * Visiting home nurse to do wound checks. Call Orthopedic office for: * Increased drainage * Redness * Increased pain * Fever Go to ER with shortness of breath or chest pain. Diet: * Regular diet * Increase fluids and fiber to prevent constipation. * Continue to use stool softeners, call office if no bowel motion within 48 hours. Medications See Home Medication List in your packet for medications that you should take after discharge. DVT Prophylaxis: Aspirin 325 once per day x 2 weeks Pain Control: Percocet Dosin/325 mg 1-2 tabs by mouth every 4-6 hours as needed for pain. Maximum of 10 tabs per day. Please note that Percocet contains Tylenol (acetaminophen). Maximum daily dose of Tylenol is 4000 mg from all sources. Infusion center starting on 10/22/2019 for IV infusion of levaquin every day You will need weekly labs, CBC, CMP, CRP. FOLLOW UP: Follow up with [[facility]] on 11/25/2019, call for appointment Please call our office with any questions or concerns ([phone])
[2019-11-21 19:25] LABS: B. garinii/B. afzellii PCR Negative (Negative); Lyme Disease Source SYNOVIAL FLUID
== END 2019-11-20 13:45 | disposition home or self-care (01) | DRG 383 ==
LOC: OR 14:18 → SSU 17:56
PROVIDERS: ADMIT Orthopaedic Surgery; ATTEND Orthopaedic Surgery
PROC: 0J9N00Z Drainage of Right Lower Leg Subcutaneous Tissue and Fascia with Drainage Device, Open Approach (ICD-10-PCS; 2019-11-17)
PROC: 0S9C4ZZ Drainage of Right Knee Joint, Percutaneous Endoscopic Approach (ICD-10-PCS; principal; 2019-11-17 15:00)
PROC: 06HY33Z Insertion of Infusion Device into Lower Vein, Percutaneous Approach (ICD-10-PCS; 2019-11-18)
DX: L02.415 Cutaneous abscess of right lower limb (principal); M00.161 Pneumococcal arthritis, right knee; B96.5 Pseudomonas (aeruginosa) (mallei) (pseudomallei) as the cause of diseases classified elsewhere; M17.11 Unilateral primary osteoarthritis, right knee; F10.11 Alcohol abuse, in remission; Z86.19 Personal history of other infectious and parasitic diseases; Z72.0 Tobacco use
CPT/HCPCS: 36415; 80048; 85025; 86140; 87070; 87073; 87077; 87102; 87186; 87205; 87476; 87640; 87641; 87798; 89051; A9270-GY; J0690; J0692; J1170; J1650; J1885; J2250; J2405; J2704; J2795; J3010; J3370; J8540